=== PATIENT | female | born 1995 | race Two or more races ===

== ENCOUNTER → 2019-07-03 14:28 | Outpatient (CLI) | payer OTHER | END | disposition home or self-care (01) | LOC: LAB 14:28 | DX: Z11.3 Encounter for screening for infections with a predominantly sexual mode of transmission (principal); Z11.4 Encounter for screening for human immunodeficiency virus [HIV] ==

== ENCOUNTER 2020-01-19 07:00 | Outpatient (CLI) | payer OTHER | END 2020-01-19 15:48 | disposition home or self-care (01) | LOC: PPH VACUNA 07:00 | DX: Z23 Encounter for immunization (principal) ==

== ENCOUNTER 2020-03-06 13:57 | Outpatient (CLI) | payer OTHER | END 2020-03-06 14:37 | disposition home or self-care (01) | LOC: RAD 13:57 | DX: M25.552 Pain in left hip (principal) ==

== ENCOUNTER 2020-04-10 07:10 | Outpatient (CLI) | payer OTHER | END 2020-04-10 07:22 | disposition home or self-care (01) | LOC: MRI 07:10 | PROVIDERS: ATTEND Internal Medicine | DX: M25.552 Pain in left hip (principal) | CPT/HCPCS: 73718 ==

== ENCOUNTER 2020-06-20 07:19 | Outpatient (CLI) | payer OTHER | END 2020-06-20 07:26 | disposition home or self-care (01) | LOC: RAD 07:19 | DX: M79.642 Pain in left hand (principal); M25.542 Pain in joints of left hand ==

== ENCOUNTER → 2020-07-16 | Outpatient (CLI) | payer OTHER | END | disposition home or self-care (01) | LOC: MRI 14:05 | PROVIDERS: ATTEND Internal Medicine | DX: M79.641 Pain in right hand (principal); N64.4 Mastodynia | CPT/HCPCS: 73218 ==

== ENCOUNTER → 2020-10-04 11:17 | Outpatient (CLI) | payer OTHER | END | disposition home or self-care (01) | LOC: LAB 11:17 | PROVIDERS: ATTEND Internal Medicine Infectious Disease | DX: E03.9 Hypothyroidism, unspecified (principal); I10 Essential (primary) hypertension ==

== ENCOUNTER 2020-10-21 15:25 | Outpatient (CLI) | payer OTHER | END 2020-10-21 15:31 | disposition home or self-care (01) | LOC: RAD 15:25 | PROVIDERS: ATTEND Orthopaedic Surgery Hand Surgery | DX: S51.011A Laceration without foreign body of right elbow, initial encounter (principal) ==

== ENCOUNTER 2020-11-01 11:10 | Outpatient (CLI) | payer OTHER | END 2020-11-01 11:11 | disposition home or self-care (01) | LOC: LAB 11:10 | PROVIDERS: ATTEND Physical Medicine & Rehabilitation | DX: M13.88 Other specified arthritis, other site (principal) ==

== ENCOUNTER → 2020-12-02 11:04 | Outpatient (CLI) | payer OTHER | END | disposition home or self-care (01) | LOC: LAB 11:04 | PROVIDERS: ATTEND Internal Medicine | DX: D50.8 Other iron deficiency anemias (principal) ==

== ENCOUNTER → 2021-02-20 | Outpatient (CLI) | payer OTHER | END | disposition home or self-care (01) | LOC: NUCLEAR 11:00 | PROVIDERS: ATTEND Internal Medicine | DX: M13.0 Polyarthritis, unspecified (principal); L40.59 Other psoriatic arthropathy | CPT/HCPCS: 78315; A9503 ==